=== PATIENT | male | born 1960 | race Caucasian/White ===

== ENCOUNTER → 2021-01-20 | Day surgery (SDC) | payer OTHER ==
[~2021-01-20] VITALS: Ht 177.8 cm; Wt 90.7 kg
[~2021-01-20] MED LIST: ACETAMINOPHEN-1 EAC2 PO; ADVIL200 M1 PO; AMLODIPINE BESYL5 MG PO; CYCLOBENZAPRINE10 MG PO; DILTIAZEM 24HR360 MG PO; LISINOPRIL40 MG PO; LOPRESSOR50 MG PO; MELATONIN3 MG PO; ROSUVASTATIN CAL5 MG PO; VITAMIN D350 MC4 PO; XARELTO20 MG PO
== END | disposition home or self-care (01) ==
LOC: FAS 06:10
DX: M16.0 Bilateral primary osteoarthritis of hip (principal); I10 Essential (primary) hypertension; I48.91 Unspecified atrial fibrillation; Z79.01 Long term (current) use of anticoagulants
CPT/HCPCS: 76000; J1040; J2250; J2704; J7120; Q9967